=== PATIENT | female | born 1995 | race African-American/Black ===

== ENCOUNTER 2023-06-19 10:52 | Emergency (ER) | payer OTHER ==
[2023-06-19 11:01] VITALS: BP 134/76; PULSE 82; RESP 20; TEMP 98.8; BMI 40.4
[2023-06-19] MEDS ORDERED: IBUPROFEN 600 MG TABLET (FP) PO ONE ×2 (12:57→13:01)
== END 2023-06-19 13:13 | disposition home or self-care (01) ==
LOC: JERFT 10:52
DX: M25.561 Pain in right knee (principal); S80.01XA Contusion of right knee, initial encounter; W19.XXXA Unspecified fall, initial encounter
CPT/HCPCS: 73562-TC-RT-FY; 99283-25

== ENCOUNTER 2023-11-01 11:37 | Emergency (ER) | payer SELFPAY ==
[2023-11-01 11:42] VITALS: BP 115/62; PULSE 88; RESP 18; TEMP 98; BMI 41.3
[2023-11-01] MEDS ORDERED: ACETAMINOPHEN INJECTION 100 ML IVPB ONE (12:55)
[2023-11-01] MEDS ORDERED: METOCLOPRAMIDE HCL INJECTION 10 MG/2 ML VIAL ONE (12:55)
[2023-11-01] MEDS: SODIUM CHLORIDE 1,000 ML IV STA (13:41)
[2023-11-01] MEDS: ACETAMINOPHEN 1000 MG/100 ML BAG IVPB ONE (13:42)
[2023-11-01] MEDS: METOCLOPRAMIDE HCL INJECTION 10 MG/2 ML VIAL IVPUSH ONE (13:43)
[2023-11-01 14:02] LABS: POTASSIUM 3.9 mmol/L (3.5-5.1)
[2023-11-01 14:04] LABS: ALBUMIN 3.5 g/dl (3.4-5.0); BLOOD UREA NITROGEN 12.7 mg/dL (7-18); CALCIUM 9.1 mg/dL (8.5-10.1); MAGNESIUM 2.1 mg/dL (1.8-2.4)
[2023-11-01 14:07] LABS: CREATININE 0.7 mg/dL (0.55-1.3)
[2023-11-01 14:09] LABS: BILIRUBIN,TOTAL 0.3 mg/dL (0.2-1); TOT PROT 7.2 g/dl (6.4-8.2)
[2023-11-01 14:12] LABS: N-TERMINAL BNP 52.7 pg/ml (5-125)
[2023-11-01 14:23] LABS: BASO % 0.4 % (0-2.0); EOS % 0.9 % (0-4.5); HEMATOCRIT 35.7 % (32.4-45.2); HEMOGLOBIN 11.6 GM/dL (10.7-15.3); LYMPH % 29.8 % (8-40); MCH 26.8 pg (25.7-33.7); MCHC 32.5 g/dl (32.0-36.0); MEAN CELL VOLUME 82.5 fl (80-96); MEAN PLT VOLUME 7.1 fl (7.5-11.1); MONO % 5.6 % (3.8-10.2); NEUT % 63.3 % (42.8-82.8); PLATELET COUNT 272 10^3/uL (134-434); RBC 4.33 M/mm3 (3.60-5.2); RDW 15.7 % (11.6-15.6); WHITE BLOOD COUNT 7.7 K/mm3 (4.0-10.0)
== END 2023-11-01 17:06 | disposition home or self-care (01) ==
LOC: JER 11:37
PROC: 3E033NZ Introduction of Analgesics, Hypnotics, Sedatives into Peripheral Vein, Percutaneous Approach (ICD-10-PCS; principal; 2023-11-01)
PROC: 3E033GC Introduction of Other Therapeutic Substance into Peripheral Vein, Percutaneous Approach (ICD-10-PCS; 2023-11-01)
PROC: 3E0337Z Introduction of Electrolytic and Water Balance Substance into Peripheral Vein, Percutaneous Approach (ICD-10-PCS; 2023-11-01)
DX: R51.9 Headache, unspecified (principal); R07.9 Chest pain, unspecified; R42 Dizziness and giddiness; D32.9 Benign neoplasm of meninges, unspecified; Z20.822 Contact with and (suspected) exposure to COVID-19
CPT/HCPCS: 0241U-QW; 36415; 70450-TC; 71046-TC-FY; 71275-TC; 80053; 83735; 83880; 84484; 84703; 85025; 85379; 93005; 93010; 99285-25; J0131; Q9967

== ENCOUNTER 2023-11-14 11:08 | Emergency (ER) | payer SELFPAY ==
[2023-11-14 11:29] VITALS: RESP 18; TEMP 98.1; BMI 41.3
[2023-11-14 12:11] LABS: BASO % 0.5 % (0-2.0); EOS % 2.1 % (0-4.5); HEMATOCRIT 34.4 % (32.4-45.2); HEMOGLOBIN 11.4 GM/dL (10.7-15.3); LYMPH % 38.6 % (8-40); MCH 27.3 pg (25.7-33.7); MCHC 33.2 g/dl (32.0-36.0); MEAN CELL VOLUME 82.2 fl (80-96); MEAN PLT VOLUME 7.1 fl (7.5-11.1); MONO % 6.8 % (3.8-10.2); PLATELET COUNT 262 10^3/uL (134-434); RBC 4.18 M/mm3 (3.60-5.2); WHITE BLOOD COUNT 5.1 K/mm3 (4.0-10.0)
[2023-11-14 12:17] LABS: URINE APPEARANCE CLEAR; URINE BILIRUBIN NEGATIVE (NEGATIVE); URINE COLOR YELLOW; URINE GLUCOSE (UA) NEGATIVE (NEGATIVE); URINE KETONE NEGATIVE (NEGATIVE); URINE LEUK ESTERASE NEGATIVE (NEGATIVE); URINE NITRITE NEGATIVE (NEGATIVE); URINE PROTEIN NEGATIVE (NEGATIVE); URINE UROBILINOGEN 0.2 mg/dL (0.2-1.0)
[2023-11-14 12:21] LABS: HCG,QUALITATIVE URINE Negative
[2023-11-14] MEDS ORDERED: ACETAMINOPHEN INJECTION 100 ML IVPB ONE (12:21)
[2023-11-14 12:30] LABS: PROTHROMBIN TIME (PATIENT) 12.1 SEC (9.7-13.0)
[2023-11-14 12:31] LABS: ACTIVATED PTT 37.6 SECONDS (25.2-36.5); INR 1.07 (0.83-1.09)
[2023-11-14 12:35] LABS: POTASSIUM 4.3 mmol/L (3.5-5.1)
[2023-11-14 12:37] LABS: CALCIUM 8.9 mg/dL (8.5-10.1)
[2023-11-14 12:38] LABS: ALBUMIN 3.1 g/dl (3.4-5.0); BLOOD UREA NITROGEN 12.1 mg/dL (7-18)
[2023-11-14 12:41] LABS: CREATININE 0.7 mg/dL (0.55-1.3)
[2023-11-14 12:43] LABS: TOT PROT 6.7 g/dl (6.4-8.2)
[2023-11-14 12:46] LABS: BILIRUBIN,TOTAL 0.3 mg/dL (0.2-1)
[2023-11-14] MEDS: ACETAMINOPHEN 1000 MG/100 ML BAG IVPB ONE (12:51)
[2023-11-14 13:41] VITALS: BP 110/67; PULSE 70
== END 2023-11-14 13:41 | disposition home or self-care (01) ==
LOC: JER 11:08
PROC: 3E033NZ Introduction of Analgesics, Hypnotics, Sedatives into Peripheral Vein, Percutaneous Approach (ICD-10-PCS; principal; 2023-11-14)
DX: R07.2 Precordial pain (principal); Z20.822 Contact with and (suspected) exposure to COVID-19
CPT/HCPCS: 0241U-QW; 36415; 71046-TC-FY; 80053; 81003; 83735; 84484; 84703; 85025; 85610; 85730; 93005; 93010; 99285-25; J0131

== ENCOUNTER 2024-03-27 17:50 | Emergency (ER) | payer OTHER ==
[2024-03-27 17:59] VITALS: BP 133/84; PULSE 82; RESP 18; TEMP 99.1; BMI 36.1
[2024-03-27] MEDS ORDERED: ACETAMINOPHEN 500 MG TABLET (FP) ONE (19:19)
[2024-03-27] MEDS: ACETAMINOPHEN 325 MG TABLET (FP) PO ONE (19:26)
[2024-03-27] MEDS ORDERED: IBUPROFEN 600 MG TABLET (FP) PO ONE (20:09)
[2024-03-27] MEDS: IBUPROFEN 600 MG TABLET (FP) PO ONE (20:14)
== END 2024-03-27 20:41 | disposition home or self-care (01) ==
LOC: JER 17:50 → JERFT 17:50 → JER 20:41
DX: S16.1XXA Strain of muscle, fascia and tendon at neck level, initial encounter (principal); S29.011A Strain of muscle and tendon of front wall of thorax, initial encounter; R51.9 Headache, unspecified; V43.62XA Car passenger injured in collision with other type car in traffic accident, initial encounter; Y92.410 Unspecified street and highway as the place of occurrence of the external cause
CPT/HCPCS: 71046-TC-FY; 84703; 93005; 93010; 99285-25